=== PATIENT | female | born 1990 | race Caucasian/White ===

== ENCOUNTER 2016-11-01 02:36 | Emergency (ER) | payer OTHER ==
[~2016-11-01 02:36] MED LIST: AMOXICILLIN; NO MEDICATIONS; PREDNISONE PO; SUBOXONE 8 MG-1 EAC1 SL; TYLENOL WITH C1 EACH
[2017-02-20] MEDS ORDERED: KEFLEX500 MG PO (17:29)
== END 2016-11-01 04:35 | disposition home or self-care (01) ==
LOC: SED 02:36
DX: J02.0 Streptococcal pharyngitis (principal); F17.200 Nicotine dependence, unspecified, uncomplicated; Z88.8 Allergy status to other drugs, medicaments and biological substances
CPT/HCPCS: 87880; 96372; 99283; J0561

== ENCOUNTER 2016-12-07 22:07 | Emergency (ER) | payer OTHER ==
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
[2016-12-07] MEDS ORDERED: SUBOXONE 8 MG-1 EAC1 (22:13)
[2017-02-20] MEDS ORDERED: KEFLEX500 MG PO (17:29)
== END 2016-12-08 00:56 | disposition home or self-care (01) ==
LOC: SED 22:07
DX: S33.5XXA Sprain of ligaments of lumbar spine, initial encounter (principal); F17.200 Nicotine dependence, unspecified, uncomplicated; V49.10XA Passenger injured in collision with unspecified motor vehicles in nontraffic accident, initial encounter; Z88.8 Allergy status to other drugs, medicaments and biological substances
CPT/HCPCS: 72100; 99283

== ENCOUNTER 2017-02-02 12:14 | Emergency (ER) | payer OTHER ==
[~2017-02-02 12:14] MED LIST changes: +SUBOXONE 8 MG-1 EAC1
[2017-02-20] MEDS ORDERED: KEFLEX500 MG PO (17:29)
== END 2017-02-02 13:51 | disposition home or self-care (01) ==
LOC: SED 12:14
DX: F11.23 Opioid dependence with withdrawal (principal); R19.7 Diarrhea, unspecified; F17.210 Nicotine dependence, cigarettes, uncomplicated; Z88.8 Allergy status to other drugs, medicaments and biological substances
CPT/HCPCS: 36415; 96361; 96374; 96375; 99284; J1885; J2405

== ENCOUNTER 2017-02-09 12:32 | Emergency (ER) | payer OTHER ==
[~2017-02-09] VITALS: Ht 167.6 cm; Wt 86.2 kg
--- NOTE | ~2017-02-09 | US67 ---
[facility]. [facility] A Service of [facility] & [facility] RADIOLOGY TEXT RESULTS PATIENT: XUAN MAI LOCATION: SED : 91 UNIT #: [id number] AGE: [address]: Parag Manning MD SEX: F ORDER DR: [id number] [address] [address] [id number] E MR#: [id number] Acc #: [id number] NAME: XUAN MAI : 1990 SEX: F STUDY DATE/TIME: 02/09/2017 12:59 UNIT: SED ROOM: STUDY DESCRIPTION: US Gallbladder Attending Physician: Parag Manning M.D. Ordering Physician: Parag Manning M.D. Primary Care Physician: Darno Thomson M.D. MEDICAL IMAGING REPORT This report is preliminary unless electronic signature is present. EXAM Gallbladder ultrasound INDICATION Right upper quadrant pain for an hour. The patient ate a large breakfast 45 minutes ago. FINDINGS The liver is normal in echogenicity and size. The visualized pancreas is normal. The gallbladder contains multiple echogenic shadowing foci consistent with stones. There is no biliary distension. The right kidney is normal. IMPRESSION There are multiple gallstones present. Otherwise the study appears normal. Dictated by... Marty Jimenez M.D. THIS IS AN ELECTRONICALLY VERIFIED REPORT Marty Jimenez M.D. at 02/11/2017 6:16 AM DARLING/jack TD: 02/10/2017 15:47 JOB #: [id number] MEDICAL IMAGING REPORT Page 1 of 1
[2017-02-09 14:04] LABS: BASOPHIL% 0.3 % (0-2.5); EOSINOPHIL% 0.2 % (0.0-7.0); HEMATOCRIT 42.2 % (35.0-45.0); HEMOGLOBIN 14.1 gm/dL (12.0-16.0); LYMPHOCYTE# 2.8 X10e3 (1.0-3.5); LYMPHOCYTE% 21.9 % (17.0-45.0); MEAN CELL VOLUME 85.6 FL (83-96); MEAN CORPUSCULAR HEMOGLOBIN 28.5 PG (28-34); MEAN CORPUSCULAR HGB CONC 33.4 g/dL (30-36); MEAN PLATELET VOLUME 8.1 FL (6.5-11.5); MONOCYTE# 0.5 X10e3 (0-1.0); MONOCYTE% 3.8 % (3.0-12.0); NEUTROPHIL# 9.5 X10e3 (1.5-7.1); NEUTROPHIL% 73.8 % (40-75); PLATELET COUNT 294 X10e3 (140-420); RED BLOOD COUNT 4.93 X10e (3.90-5.30); RED CELL DISTRIBUTION WIDTH 14.3 % (11.0-15.5); WHITE BLOOD COUNT 12.9 X10e3 (4.0-10.5)
[2017-02-09 14:10] LABS: DIFF IND NO
[2017-02-09 14:31] LABS: ALBUMIN SERUM 4.8 g/dL (3.5-5.0); BILIRUBIN, DIRECT 0.1 mg/dL (0.0-0.2); BILIRUBIN,INDIRECT 0.3 mg/dL (0.0-0.9); BILIRUBIN,TOTAL 0.4 mg/dL (0.2-2.0); BUN/CREATININE RATIO 14.28; CALCIUM SERUM 9.4 mg/dL (8.4-10.2); CREATININE SERUM 0.7 mg/dL (0.6-1.4); GLOM FILT RATE Estimated 120.4 mL/min (>60); POTASSIUM 3.7 mmol/L (3.5-5.1); PROTEIN TOTAL SERUM 7.7 g/dL (6.0-8.3)
[2017-02-09 14:46] LABS: URINE SOURCE CLEAN CATCH
[2017-02-09 14:49] LABS: URINE APPEARANCE CLOUDY; URINE BILIRUBIN NEG (NEG); URINE BLOOD NEG (NEG); URINE COLOR YELLOW; URINE GLUCOSE NEG (NORM); URINE KETONE NEG (NEG); URINE NITRATE NEG (NEG); URINE PH 7.5 (5-8); URINE PROTEIN NEG (NEG); URINE UROBILINOGEN 0.2 MG/DL (NORM)
[2017-02-09 14:54] LABS: MICRO INDICATED? YES; URINE LEUKOCYTE ESTERASE TRACE (NEG)
[2017-02-09 14:55] LABS: CULTURE INDICATED? YES; URINE AMORPHOUS SEDIMENT AMORP PHOSPHATES; URINE BACTERIA 4+ (NEG); URINE RBC 0-2 /[HPF] (0-2); URINE SQUAMOUS EPITHELIAL CELL OCCAS /[HPF]; URINE TRANSITIONAL EPI CELLS OCCAS /[HPF]
[2017-02-09 15:04] LABS: AMPHETAMINE NEG (NEG); BARBITURATES NEG (NEG); BENZODIAZEPINES POS (NEG); COCAINE NEG (NEG); MARIJUANA POS (NEG); OPIATES NEG (NEG); TRICYCLIC ANTIDEPRESSANTS NEG (NEG); U METHADONE NEG (NEG)
[2017-02-20] MEDS ORDERED: KEFLEX500 MG PO (17:29)
== END 2017-02-09 16:19 | disposition home or self-care (01) ==
LOC: SED 12:32
PROVIDERS: Emergency Medicine
DX: R10.11 Right upper quadrant pain (principal); R11.2 Nausea with vomiting, unspecified; F11.10 Opioid abuse, uncomplicated; Z88.8 Allergy status to other drugs, medicaments and biological substances
CPT/HCPCS: 76705; 80048; 80076; 80307; 81003; 82150; 83690; 84703; 85025; 87086; 87088; 87186; 96374; 96375; 99284; J1885; J2405